=== PATIENT | male | born 1990 | race Two or more races ===

== ENCOUNTER 2020-08-24 11:38 | Emergency (ER) | payer OTHER ==
[~2020-08-24] VITALS: Ht 180.3 cm; Wt 72.6 kg
== END 2020-08-24 16:26 | disposition home or self-care (01) ==
LOC: ER 11:38
DX: S51.021A Laceration with foreign body of right elbow, initial encounter (principal); W45.8XXA Other foreign body or object entering through skin, initial encounter; Y93.89 Activity, other specified; Y92.89 Other specified places as the place of occurrence of the external cause; Y99.8 Other external cause status

== ENCOUNTER → 2020-09-27 | Emergency (ER) | payer OTHER ==
[~2020-09-27] VITALS: Ht 180.3 cm; Wt 77.1 kg
[~2020-09-27] MED LIST: LITHOBID300 M1 PO; SEROQUEL400 MG PO; XANAX XR2 MG PO
== END | disposition left against medical advice (07) ==
LOC: ER 17:18
DX: R45.851 Suicidal ideations (principal); R44.0 Auditory hallucinations; F41.8 Other specified anxiety disorders; Z03.818 Encounter for observation for suspected exposure to other biological agents ruled out